=== PATIENT | male | born 1955 | race Caucasian/White ===

== ENCOUNTER 2023-08-24 07:25 | Day surgery (SDC) | payer OTHER, MEDICARE ==
[~2023-08-24] VITALS: Ht 175.3 cm; Wt 89.1 kg
[~2023-08-24 07:25] MED LIST: ATOR1TAB21 PO; CYAN-1 PO; METO1TAB7 PO; VITA200012 PO
[2023-08-24] MEDS ORDERED: LR 1,000 ML IV SCH (08:45)
[2023-08-24] MEDS ORDERED: propofoL 200 MG/20 ML VIAL As Ordered ONE (09:11)
[2023-08-24] MEDS ORDERED: LIDOCAINE 2% 100MG/5ML SDV (FOR ANES.) As Ordered ONE (09:11)
[2023-08-24] MEDS: ceFAZolin SOD 2 GM in IV 1 EA IV ONE (10:02)
[2023-08-24] MEDS ORDERED: MIDAZOLAM INJ 2MG/2ML VIAL As Ordered ONE (10:11)
[2023-08-24] MEDS ORDERED: fentaNYL 100 MCG/2 ML INJECTION As Ordered ONE (10:19)
[2023-08-24] MEDS ORDERED: HYDR-3713 PO (10:20)
[2023-08-24] MEDS ORDERED: MACR100C43 PO (10:20)
[2023-08-24] MEDS ORDERED: ONDANSETRON 4MG 2ML VIAL As Ordered ONE (10:21)
[2023-08-24] MEDS ORDERED: ACETAMINOPHEN 1000MG 100ML IV BAG As Ordered ONE (10:21)
[2023-08-24 11:56] VITALS: BP 145/87; TEMP 97.6; O2SAT 96
== END 2023-08-24 12:02 | disposition home or self-care (01) ==
LOC: M SDC 07:25
PROVIDERS: ATTEND Urology
DX: N20.1 Calculus of ureter (principal); I10 Essential (primary) hypertension; E78.00 Pure hypercholesterolemia, unspecified; K21.9 Gastro-esophageal reflux disease without esophagitis; Z79.899 Other long term (current) drug therapy; Z87.891 Personal history of nicotine dependence
CPT/HCPCS: 50590; 74018; J0131; J0690; J1100; J2250; J2405; J3010

== ENCOUNTER → 2023-09-26 | Outpatient (REF) | payer OTHER, MEDICARE ==
[~2023-09-26] MED LIST changes: +HYDR-3713 PO; +MACR100C43 PO
== END ==
LOC: M SMT 17:26
PROVIDERS: ATTEND Urology
DX: N20.0 Calculus of kidney (principal)